=== PATIENT | female | born 1940 | race Hispanic/Latino ===

== ENCOUNTER 2022-06-24 17:00 | Inpatient (IN) | payer OTHER, MEDICARE ==
[~2022-06-24] VITALS: Ht 157.5 cm; Wt 58.6 kg
[~2022-06-24 17:00] MED LIST: ALEN70TA80 PO; ASPI-1197 PO; ATOR20TA65 PO; ISOS30TA92 PO; LEVO125T11 PO; LISINOPRIL PO; METO25TA6 PO; RIVA20TA PO
[2022-06-24] MEDS ORDERED: DILTIAZEM 25MG INJ IVP ONE (17:30)
[2022-06-24 17:39] LABS: BASOPHILS % (AUTO) 0.5 % (0.0-5.0); EOSINOPHILS % (AUTO) 1.7 % (0.0-8.0); HEMATOCRIT 33.9 % (36-48); LYMPHOCYTES % (AUTO) 34.1 % (21.0-51.0); MEAN CORPUSCULAR HEMOGLOBIN 26.9 pg (27.0-33.0); MEAN CORPUSCULAR HGB CONC 32.7 g/dL (32.0-36.0); MEAN CORPUSCULAR VOLUME 82.3 fL (79-99); NEUTROPHILS % (AUTO) 54.5 % (40.0-77.0); PLATELET COUNT (AUTO) 220 K/uL (130-400); RED BLOOD CELL COUNT(AUTO) 4.12 MIL/uL (4.00-5.50); RED CELL DISTRIBUTION WIDTH 12.8 % (11.0-15.5); WHITE BLOOD COUNT (AUTO) 8.7 K/uL (4.8-10.8)
[2022-06-24 17:49] LABS: CARBON DIOXIDE 29 mmol/L (21-32); CHLORIDE 99 mmol/L (101-111); CREATININE 1.2 mg/dL (0.5-1.5); GLOMERULAR FILTR. RATE CALC 46 mL/min (>60); GLUCOSE,RANDOM 125 mg/dL (70-105); POTASSIUM 3.6 mmol/L (3.5-5.1); SODIUM SERUM 137 mmol/L (136-145); UREA NITROGEN, BLOOD 12 mg/dL (7-18)
[2022-06-24] MEDS ORDERED: METO25TA6 PO (17:50)
[2022-06-24] MEDS ORDERED: FAMO40TA75 PO (17:50)
[2022-06-24] MEDS ORDERED: HYDR12.54 PO (17:50)
[2022-06-24] MEDS ORDERED: OMEP40CA21 PO (17:50)
[2022-06-24] MEDS ORDERED: LEVO100C4 PO (17:50)
[2022-06-24] MEDS ORDERED: LISI40TA9 PO (17:50)
[2022-06-24 18:02] LABS: ALANINE AMINOTRANSFERASE 18 U/L (12-78); ALBUMIN 3.6 g/dL (3.5-5.0); ASPARTATE AMINOTRANSFERASE 18 U/L (10-37); TOTAL PROTEIN, SERUM 7.4 g/dL (6.0-8.3)
[2022-06-24 18:03] LABS: B-TYPE NATRIURETIC PEPTIDE 454 pg/mL (0-100)
[2022-06-24 18:20] LABS: CRP QUANTITATIVE < 2.00 mg/L (0.00-9.0)
[2022-06-24 18:42] LABS: APPEARANCE,URINE CLEAR (CLEAR); BILIRUBIN,URINE NEGATIVE (NEGATIVE); COLOR,URINE YELLOW (YELLOW); GLUCOSE, URINE (UA) NEGATIVE (NEGATIVE); KETONES,URINE NEGATIVE (NEGATIVE); LEUKOCYTE ESTERASE ,URINE LARGE (NEGATIVE); NITRATE,URINE NEGATIVE (NEGATIVE); OCCULT BLOOD,URINE TRACE-INTACT (NEGATIVE); PROTEIN,URINE NEGATIVE (NEGATIVE); UROBILINOGEN,URINE 0.2 mg/dL (0.2-1.0)
[2022-06-24 18:50] LABS: BACTERIA,URINE Few /HPF (None Seen); SQUAMOUS EPITHELIAL CELL,UR Few /HPF (0-2)
[2022-06-24] MEDS ORDERED: DILTIAZEM 125 MG/25 ML INJ 125 MG in 0.9%NACL 100ML 100 ML IV PRN (19:00)
[2022-06-24] MEDS ORDERED: DILTIAZEM 25MG INJ IVP PRN (19:00)
[2022-06-24] MEDS ORDERED: CEFTRIAXONE 1G VIAL IVP ONE (19:00)
[2022-06-25 05:05] LABS: BASOPHILS % (AUTO) 0.6 % (0.0-5.0); EOSINOPHILS % (AUTO) 2.6 % (0.0-8.0); LYMPHOCYTES % (AUTO) 36.9 % (21.0-51.0); MEAN CORPUSCULAR HEMOGLOBIN 26.8 pg (27.0-33.0); MEAN CORPUSCULAR HGB CONC 32.3 g/dL (32.0-36.0); MEAN CORPUSCULAR VOLUME 82.9 fL (79-99); MONOCYTES % (AUTO) 7.8 % (3.0-13.0); PLATELET COUNT (AUTO) 220 K/uL (130-400); RED BLOOD CELL COUNT(AUTO) 4.22 MIL/uL (4.00-5.50); WHITE BLOOD COUNT (AUTO) 7.8 K/uL (4.8-10.8)
[2022-06-25 05:25] LABS: HEMOGLOBIN A1C 6.2 % (4.0-6.0)
[2022-06-25 05:50] LABS: ALBUMIN 3.1 g/dL (3.5-5.0); MAGNESIUM 1.9 mg/dL (1.80-2.40); PHOSPHORUS 4.3 mg/dL (2.5-4.9); POTASSIUM 4.2 mmol/L (3.5-5.1); TOTAL PROTEIN, SERUM 6.8 g/dL (6.0-8.3)
[2022-06-25 08:00] VITALS: BP 110/77
[2022-06-25] MEDS ORDERED: ASPIRIN 81 MG EC TAB PO SCH (09:00)
[2022-06-25] MEDS ORDERED: ENOXAPARIN SODIUM 40 MG/0.4 ML SYRINGE SQ SCH (09:00)
[2022-06-25 12:00] VITALS: BP 112/58
[2022-06-25 12:58] VITALS: BP 138/53
[2022-06-25 16:00] VITALS: BP 110/76
[2022-06-25] MEDS ORDERED: METOPROLOL TARTRATE 50 MG TAB PO ONE (18:30)
[2022-06-25 20:00] VITALS: BP 135/64
[2022-06-25] MEDS ORDERED: METOPROLOL TARTRATE 25 MG TAB PO SCH (21:00)
[2022-06-25] MEDS ORDERED: HYDROCHLOROTHIAZIDE 25 MG TABLET PO SCH (21:00)
[2022-06-25] MEDS: METOPROLOL TARTRATE 25 MG TAB PO SCH (21:08)
[2022-06-26 00:43] VITALS: BP 107/54
[2022-06-26 04:37] VITALS: BP 132/72
[2022-06-26] MEDS ORDERED: LEVOTHYROXINE 100 MCG TABLET PO SCH (06:30)
[2022-06-26 08:00] VITALS: BP 106/56
[2022-06-26] MEDS: METOPROLOL TARTRATE 25 MG TAB PO SCH (08:27)
[2022-06-26] MEDS ORDERED: HYDROCHLOROTHIAZIDE 25 MG TABLET PO SCH (08:30)
[2022-06-26] MEDS ORDERED: FAMOTIDINE 20MG TAB PO SCH (09:00)
[2022-06-26] MEDS ORDERED: ATORVASTATIN 20 MG TABLET PO SCH (09:00)
[2022-06-26] MEDS ORDERED: LISINOPRIL 40 MG TABLET PO SCH (09:00)
[2022-06-26] MEDS ORDERED: DRONEDARONE HYDROCHLORIDE 400 MG TABLET PO SCH (09:00)
[2022-06-26] MEDS ORDERED: PANTOPRAZOLE 40 MG TAB DR PO SCH (09:00)
[2022-06-26] MEDS ORDERED: FUROSEMIDE 20MG VIAL IV SCH (09:00)
[2022-06-26] MEDS ORDERED: RIVAROXABAN 20 MG TABLET PO SCH (09:00)
[2022-06-26 12:00] VITALS: BP 95/45
[2022-06-27] MEDS ORDERED: FUROSEMIDE 20 MG TABLET PO SCH (09:00)
== END 2022-06-26 14:33 | disposition home or self-care (01) | DRG 291 ==
LOC: EDH 17:00 → EDHIP 18:56 → 4CH 06-25 07:42
PROVIDERS: ADMIT Internal Medicine Infectious Disease; ATTEND Internal Medicine Infectious Disease
DX: I11.0 Hypertensive heart disease with heart failure (principal); I50.31 Acute diastolic (congestive) heart failure; D68.59 Other primary thrombophilia; Z20.822 Contact with and (suspected) exposure to COVID-19; I48.0 Paroxysmal atrial fibrillation; E03.9 Hypothyroidism, unspecified; D64.9 Anemia, unspecified; I25.10 Atherosclerotic heart disease of native coronary artery without angina pectoris; E78.00 Pure hypercholesterolemia, unspecified; E11.9 Type 2 diabetes mellitus without complications; Z79.01 Long term (current) use of anticoagulants
CPT/HCPCS: 36415; 71045; 80053; 81001; 82550; 83036; 83735; 83874; 83880; 84100; 84443; 84484; 85025; 86140; 87088; 87635; 93005; C9803; G0378; J0696; J1650; J3490

== ENCOUNTER → 2022-06-29 | Outpatient (CLI) | payer OTHER, MEDICARE ==
[~2022-06-29] MED LIST changes: -ALEN70TA80 PO; -ASPI-1197 PO; +FAMO40TA75 PO; +HYDR12.54 PO; -ISOS30TA92 PO; +LEVO100C4 PO; -LEVO125T11 PO; +LISI40TA9 PO; -LISINOPRIL PO; +OMEP40CA21 PO
== END | disposition home or self-care (01) ==
LOC: CANPRECLI → SHCH 08:59
PROVIDERS: ATTEND Internal Medicine Cardiovascular Disease
DX: I10 Essential (primary) hypertension (principal); R06.02 Shortness of breath; E78.5 Hyperlipidemia, unspecified
CPT/HCPCS: 93306

== ENCOUNTER → 2023-05-31 | Outpatient (CLI) | payer MEDICARE ==
[2023-05-31 12:09] LABS: BASOPHILS # (AUTO) 0.06 K/uL (0.00-0.20); BASOPHILS % (AUTO) 0.6 % (0.0-5.0); EOSINOPHILS % (AUTO) 2.1 % (0.0-8.0); HEMATOCRIT 33.9 % (36-48); IMMATURE GRANULOCYTE ABSOLUTE 0.05 K/uL (0-1); LYMPHOCYTES # (AUTO) 2.2 K/uL (1.0-4.8); MEAN CORPUSCULAR HEMOGLOBIN 27.1 pg (27.0-33.0); MEAN CORPUSCULAR HGB CONC 31.6 g/dL (32.0-36.0); MEAN CORPUSCULAR VOLUME 85.8 fL (79-99); MONOCYTES # (AUTO) 0.8 K/uL (0.1-1.0); MONOCYTES % (AUTO) 8.6 % (3.0-13.0); NEUTROPHILS # (AUTO) 6.1 K/uL (1.8-7.7); NEUTROPHILS % (AUTO) 65.2 % (40.0-77.0); PLATELET COUNT (AUTO) 195 K/uL (130-400); RED BLOOD CELL COUNT(AUTO) 3.95 MIL/uL (4.00-5.50); RED CELL DISTRIBUTION WIDTH 13.7 % (11.0-15.5); WHITE BLOOD COUNT (AUTO) 9.4 K/uL (4.8-10.8)
[2023-05-31 12:32] LABS: ALBUMIN 3.4 g/dL (3.5-5.0); BILIRUBIN,TOTAL 0.5 mg/dL (0.2-1.0); CREATININE 1.2 mg/dL (0.5-1.5); POTASSIUM 4.6 mmol/L (3.5-5.1); TOTAL PROTEIN, SERUM 7.4 g/dL (6.0-8.3)
== END | disposition home or self-care (01) ==
LOC: LAB 10:38
PROVIDERS: ATTEND Internal Medicine Cardiovascular Disease
DX: I20.0 Unstable angina (principal)
CPT/HCPCS: 36415; 80053; 85025

== ENCOUNTER → 2023-07-02 | Outpatient (CLI) | payer MEDICARE ==
[~2023-07-02] MED LIST changes: +REGADENOSON 0.4 MG/5 ML PF SYG IVP ONE
== END | disposition home or self-care (01) ==
LOC: SHCH 07:37
PROVIDERS: ATTEND Internal Medicine Cardiovascular Disease
DX: I20.0 Unstable angina (principal)
CPT/HCPCS: 78452; 93017; J2785; A9500 ×2; 96374

== ENCOUNTER → 2023-09-23 | Outpatient (CLI) | payer MEDICARE ==
[~2023-09-23] MED LIST changes: -REGADENOSON 0.4 MG/5 ML PF SYG IVP ONE
== END | disposition home or self-care (01) ==
LOC: RAH 08:45
PROVIDERS: ATTEND Internal Medicine Gastroenterology
DX: K44.9 Diaphragmatic hernia without obstruction or gangrene (principal); K31.A11 Gastric intestinal metaplasia without dysplasia, involving the antrum; R10.13 Epigastric pain; K21.00 Gastro-esophageal reflux disease with esophagitis, without bleeding
CPT/HCPCS: 74240

== ENCOUNTER 2024-12-04 20:34 | Emergency (ER) | payer MEDICARE ==
[~2024-12-04] VITALS: Ht 149.9 cm; Wt 61.2 kg
--- NOTE | 2024-12-04 20:51 | EKG ---
[facility] Test Date: 2024-12-04 Test Time: 20:47:01 Pat Name: EMILIANO NELSON Department: ED Room: Gender: F Audio Visual Project Manager: [id number] : 1940 Requested By: LUDWIN TATE Order Number: [id number] Reading MD: Ty Velasquez Measurements Intervals [place] Rate: 59 P: 1 AR: 183 QRS: 30 QRSD: 64 T: 47 QT: 442 QTc: 437 Interpretive Statements Sinus rhythm Compared to ECG 06/24/2022 17:14:13 Atrial fibrillation no longer present Electronically Signed On 12-05-2024 06:58:31 UPPER CUTTER by Ty Velasquez Please click the below link to view image of tracing.
--- NOTE | 2024-12-04 20:56 | ERN ---
ED Note History of Present Illness Stated Complaint: C/O CP WITH SOB Chief Complaint: Chest Pain Time Seen by MD: 20:44 Dictation: PATIENT IS AN 84-YEAR-OLD FEMALE HERE WITH HER DAUGHTER WITH COMPLAINTS OF ANTERIOR CHEST PRESSURE ONSET 3-4 DAYS PRIOR TO ARRIVAL. NO SHORTNESS A BREATH NO BACK PAIN NO JAW PAIN NO ARM PAIN. SHE DOES HAVE A HISTORY OF HYPERTENSION AND IS COMPLIANT WITH HER MEDICATIONS. SHE STATES SHE SAW DR. ALVAREZ, IN HOME [employer] LAST WEEK WHO GAVE HER NITROGLYCERIN TO TAKE SUBLINGUALLY FOR ANGINA, SHE SAID SHE DID NOT USE IT. Allergies: Coded Allergies: Sulfa (Sulfonamide Antibiotics) (Unverified Allergy, Unknown, RASH, 03/09/16) Home Meds Active Scripts Rivaroxaban (Xarelto) 20 Mg Tablet, 20 MG PO DAILY, #30 TAB 3 Refills Prov:ALECIA SHAH MD 03/12/16 Reported Medications Omeprazole (Omeprazole) 40 Mg Capsule.dr, 40 MG PO DAILY, CAP 06/24/22 Levothyroxine Sodium (Levothyroxine) 100 Mcg Capsule, 100 MCG PO DAILY, CAP 06/24/22 Metoprolol Tartrate (Metoprolol Tartrate) 25 Mg Tablet, 25 MG PO BID, TAB 06/24/22 Hydrochlorothiazide (Hydrochlorothiazide) 12.5 Mg Tablet, 12.5 MG PO BID, TAB 06/24/22 Famotidine (Pepcid) 40 Mg Tablet, 40 MG PO DAILY, TAB 06/24/22 Lisinopril (Lisinopril) 40 Mg Tablet, 40 MG PO DAILY, TAB 06/24/22 Atorvastatin Calcium (Atorvastatin Calcium) 20 Mg Tablet, 2 TAB PO DAILY, TAB 03/09/16 Past Medical History Past Medical History: High Cholesterol, Hypertension, Hypothyroid Additional Past Medical Hx: THYROID Surgical History: Appendectomy Family History: Negative Social History: Negative History: Not Applicable RN Note Reviewed/Agreed w/PFSH: Yes Review of System Dictation CONSTITUTIONAL: NEGATIVE EXCEPT FOR HPI HEAD/FACE: NEGATIVE EXCEPT FOR HPI EENT: NEGATIVE EXCEPT FOR HPI RESPIRATORY: NEGATIVE EXCEPT FOR HPI CHEST PRESSURE GASTROINTESTINAL/ABDOMINAL: NEGATIVE EXCEPT FOR HPI GENITOURINARY: NEGATIVE EXCEPT FOR HPI MUSCULOSKELETAL: NEGATIVE EXCEPT FOR HPI INTEGUMENTARY: NEGATIVE EXCEPT FOR HPI NEUROLOGICAL/PSYCH: NEGATIVE EXCEPT FOR HPI HEMATOLOGIC/LYMPHATIC: NEGATIVE EXCEPT FOR HPI ALL SYSTEMS NEGATIVE, EXCEPT NOTED ABOVE. 13 POINT REVIEW OF SYSTEMS ASSESSED AND ALL NEGATIVE EXCEPT FOR ABOVE. Initial Vital Sign VS Vital Signs Date Time Temp Pulse Resp B/P (MAP) Pulse Ox O2 Delivery O2 Flow Rate FiO2 12/04/24 20:42 98.1 55 20 193/68 98 Room Air 12/04/24 21:45 0 21 Physical Exam Dictation VITAL SIGNS REVIEWED GENERAL APPEARANCE: ALERT, ORIENTED X 3, NO ACUTE DISTRESS, WELL DEVELOPED, NOURISHED. HEAD AND FACE: NON-TRAUMATIC. EYES: PERRL, PINK CONJUNCTIVAS, EYELID NO TRAUMA, ANTERIOR CHAMBER WITH ARCUS SE NILIS. EARS: PINNAS INTACT AND NO SIGNS OF TRAUMA OR ERYTHEMA EAR CANALS CLEAR AND NO DISCHARGE TM NO ERYTHEMA NOSE: NO DISCHARGE, NO BLEEDING. OROPHARYNX: MOUTH NORMAL, TONGUE PINK, PHARYNX CLEAR,NO ERYTHEMA, TONSILS NO EXUDATES, NO ABSCESSES NOTED, MUCOUS MEMBRANE MOIST NECK: SUPPLE, NON-TENDER, NO THYROMEGALY, NO MASSES, NO JVD, NO BRUITS BREAST:DEFERRED CHEST:NO TENDERNESS, NO CREPITUS, NO PARADOXICAL MOVEMENT, NO RETRACTIONS LUNGS:CLEAR, WELL-VENTILATED, SYMMETRIC, NO RALES, NO WHEEZING, NO RHONCHI, NO STRIDOR, GOOD BREATH SOUNDS BILATERALLY HEART: REGULAR RATE, REGULAR RHYTHM, NO MURMUR, NO GALLOPS VASCULAR: NO PERIPHERAL EDEMA, ABDOMEN: SOFT, POSITIVE BOWEL SOUNDS, NONDISTENDED, NO GUARDING, NONTENDER, NO REBOUND, NO MASSES NO HEPATOMEGALY, NO SPLENOMEGALY, NO MONTGOMERY'S SIGN, NO HERNIAS. RECTAL: DEFERRED GENITAL: DEFERRED NEUROLOGICAL: NORMAL SPEECH, MOTOR FUNCTION INTACT, SENSORY FUNCTION INTACT MUSCULOSKELETAL: NECK NONTENDER, FULL RANGE OF MOTION, BACK NONTENDER, FULL RANGE OF MOTION, EXTREMITIES: NONTENDER, FULL RANGE OF MOTION SKIN: COLOR PINK, DRY, NO TURGOR, NO RASH, NO LACERATIONS, NO ABRASIONS, NO CONTUSIONS. LYMPHATIC: DEFERRED Results (Laboratory/Radiology) Laboratory/Radiology Laboratory Tests Test 12/04/24 20:55 12/04/24 21:17 12/04/24 21:22 12/04/24 22:27 White Blood Count 8.2 K/uL (4.8-10.8) Red Blood Count 3.74 MIL/uL (4.00-5.50) L Hemoglobin 10.1 g/dL (12.0-16.0) L Hematocrit 31.6 % (36-48) L Mean Corpuscular Volume 84.5 fL (79-99) Mean Corpuscular Hemoglobin 27.0 pg (27.0-33.0) Mean Corpuscular Hemoglobin Concent 32.0 g/dL (32.0-36.0) Red Cell Distribution Width 13.5 % (11.0-15.5) Platelet Count 183 K/uL (130-400) Mean Platelet Volume 11.7 fL (7.5-10.5) H Immature Granulocyte % (Auto) 0.2 % (0-1) Neutrophils (%) (Auto) 48.4 % (40.0-77.0) Lymphocytes (%) (Auto) 40.0 % (21.0-51.0) Monocytes (%) (Auto) 8.0 % (3.0-13.0) Eosinophils (%) (Auto) 2.8 % (0.0-8.0) Basophils (%) (Auto) 0.6 % (0.0-5.0) Neutrophils # (Auto) 4.0 K/uL (1.8-7.7) Lymphocytes # (Auto) 3.3 K/uL (1.0-4.8) Monocytes # (Auto) 0.7 K/uL (0.1-1.0) Eosinophils # (Auto) 0.23 K/uL (0.00-0.70) Basophils # (Auto) 0.05 K/uL (0.00-0.20) Absolute Immature Granulocyte (auto 0.02 K/uL (0-1) Nucleated Red Blood Cells 0.0 % (0.0-0.19) Sodium Level 142 mmol/L (136-145) Potassium Level 4.2 mmol/L (3.5-5.1) Chloride Level 106 mmol/L (101-111) Carbon Dioxide Level 31 mmol/L (21-32) Blood Urea Nitrogen 22 mg/dL (7-18) H Creatinine 1.1 mg/dL (0.5-1.0) H Glomerular Filtration Rate Calc 50 mL/min (>90) Random Glucose 104 mg/dL (70-105) Total Calcium 8.8 mg/dL (8.5-10.1) Total Creatine Kinase 75 U/L (21-232) # B-Type Natriuretic Peptide 319 pg/mL (0-100) H Troponin I < 0.05 ng/mL (0.00-0.05) < 0.05 ng/mL (0.00-0.05) Troponin I High Sensitivity 14 ng/L (4-50) CHEST 1VW REASON: CHEST PAIN COMPARISON: 06/24/2022 FINDINGS: Single view of the chest was obtained. Lungs are clear. Heart size is borderline. There is no pulmonary vascular congestion. Mediastinum and bony thorax appear unremarkable. IMPRESSION: 1. Borderline heart size, no acute finding. Labs Reviewed?: Yes EKG Comment: EKG SINUS BRADYCARDIA/HEART RATE 59/AXIS NORMAL/NO ECTOPY 2340/2ND EKG SINUS BRADYCARDIA/HEART RATE 48/AXIS NORMAL/NO ECTOPY SECOND HEART SCORE IS THREE ED Course ED Course Orders Procedure Category Date Status Time Vital Signs Per CPOE 12/04/24 Transmitted Routine 20:37 B-Type Natriuretic LAB 12/04/24 Complete Peptide 20:37 Chest 1vw RAD 12/04/24 Resulted 20:37 12 Lead Ekg Tracing- EKG 12/04/24 Complete Technical 20:37 Oxygen By Nc/Pulse Ox CPOE 12/04/24 Transmitted 20:37 Maintain Iv CPOE 12/04/24 Transmitted 20:37 Iv Insertion CPOE 12/04/24 Transmitted 20:37 Cardiac Monitoring CPOE 12/04/24 Transmitted 20:37 Pulse Oximetry With CPOE 12/04/24 Transmitted Vs And Prn 20:37 Cbc With Differential LAB 12/04/24 Complete 20:37 Activity: Br W/Brp CPOE 12/04/24 Transmitted With Assist 20:37 Creatine Kinase, Total LAB 12/04/24 Complete 20:37 Urinalysis Profile LAB 12/04/24 Logged 20:37 Troponin Poc Order LAB 12/04/24 Complete Only 20:37 Bedside Troponin-I LAB.ER 12/04/24 In Process (Poc) 20:37 Basic Metabolic Panel LAB 12/04/24 Complete 20:37 Troponin I High LAB 12/04/24 Complete Sensitivity 22:13 12 Lead Ekg Tracing- EKG 12/04/24 Logged Technical 22:13 Vital Signs Date Time Temp Pulse Resp B/P (MAP) Pulse Ox O2 Delivery O2 Flow Rate FiO2 12/04/24 23:38 98.1 50 16 132/72 97 Room Air* 0 21 12/04/24 21:45 98.1 55 16 185/77 99 Room Air* 0 21 12/04/24 20:42 98.1 55 20 193/68 98 Room Air 2340/CARDIAC WORKUP WITH A EKGS AND TROPONINS NEGATIVE X2. PATIENT HAS A CHRONIC ANEMIA HOWEVER NO OTHER ELECTROLYTE IMBALANCES DEHYDRATION OR FINDINGS ON HER LABS. NO CHEST PRESSURE AT THIS TIME PATIENT AND DAUGHTER INSTRUCTED TO FOLLOW UP WITH HER PRIMARY CARE DOCTOR HEART Score Response (Comments) Value History: Low suspicion (0) 0 Age: > 65yrs (+2) 2 Risk Factors: 1-2 risk factors (+1) 1 Initial Troponin: Normal limit (0) 0 Total 3 Medical Decision Making MDM MDM: DIFFERENTIAL DIAGNOSIS: ACS/AMI/ANGINA/ELECTROLYTE IMBALANCE/DEHYDRATION/ PNEUMONIA/BRONCHITIS RATIONALE: TESTS CONSIDERED AND ORDERED SECONDARY TO SHARED DECISION MAKING INCLUDE: EKG/LABS/RADIOLOGY PREVIOUS OUTSIDE RECORDS REVIEWED: OLD ER VISITS. RISK OF COMPLICATION AND/OR MORBIDITY OR MORTALITY OF PATIENT MANAGEMENT: NONE MEDICATIONS-PER MEDICATION RECONCILIATION NEED FOR HOSPITALIZATION: PATIENT DOES NOT MEET CRITERIA FOR HOSPITALIZATION. NO NEED FOR EMERGENCY MAJOR/MINOR SURGERY: NO THERE ARE NO SOCIAL CONCERNS WITH THIS PATIENT. PRESCRIPTION DRUG MANAGEMENT NONE PRESCRIPTIONS WILL INCLUDE SYMPTOMATIC CARE PATIENT'S PRIOR EXTERNAL MEDICAL RECORDS FROM OTHER ER VISITS WERE REVIEWED BY ME INDICATED. PRIOR TESTING AND RESULTS FROM PREVIOUS VISITS WERE REVIEWED. PRIOR TESTS WERE TAKEN INTO ACCOUNT WITH MEDICAL DECISION MAKING AND RESOURCE UTILIZATION, INDEPENDENT HISTORIAN/HISTORIANS WERE USED TO OBTAIN COMPLETE MEDICAL HISTORY. I INDEPENDENTLY INTERPRETED THE TEST THAT WERE PERFORMED, RESULTS WERE REVIEWED BY ME AND CONSIDERED FINDINGS ON RADIOLOGY IF ORDERED. MEDICAL MANAGEMENT AND EXAMINATION INTERPRETATION DISCUSSIONS WERE HAD BY ME WITH OTHER QUALIFIED HEALTHCARE PROFESSIONALS INDICATED FOR THE PATIENT'S CARE. DX & DISP Disposition: Discharge Departure Impression: Primary Impression: Atypical chest pain Additional Impressions: Chronic anemia, Hypertension Condition: Stable Additional Instructions: FOLLOW-UP WITH PRIMARY CARE PROVIDER IN 1 TO 2 DAYS. TAKE MEDICATIONS DIRECTED HERE IN THE EMERGENCY ROOM. OKAY TO CONTINUE HOME MEDICATIONS UNLESS OTHERWISE DISCUSSED DURING YOUR VISIT IN THE EMERGENCY ROOM TODAY. RETURN TO YOUR NEAREST EMERGENCY ROOM IF SYMPTOMS WORSEN OR IF THERE IS NO IMPROVEMENT. CALL 911 IF YOU NEED IMMEDIATE ASSISTANCE. TAKE TYLENOL OR MOTRIN [id number] NEEDED AND IF NO CONTRAINDICATIONS ARE PRESENT. INCREASE ORAL HYDRATION. A WOUND CULTURE OR URINE CULTURE WAS ORDERED HERE IN THE EMERGENCY ROOM DEPARTMENT PLEASE FOLLOW-UP WITH PRIMARY CARE PROVIDER AND ADVISE THEM TO GET REPEAT PORTS FROM OUR FACILITY. IF YOU HAD ANY AUGUSTINE WRAP/SPLINTS THAT WERE APPLIED HERE, PLEASE DO NOT REMOVE THEM UNTIL YOU SEE YOUR PRIMARY CARE OR SPECIALTY. CONTINUE ALL MEDICATIONS AND TREATMENTS AT HOME FROM YOUR DOCTOR. FOLLOW UP WITH YOUR PRIMARY CARE DOCTOR IN THE NEXT 1-2 DAYS. Referrals: JOANNA GARZA DO (PCP) Time of Disposition: 23:42 I have reviewed the case, and I agree with, Diagnosis and Plan ZAID NAVA NP Dec 04, 2024 20:56
[2024-12-04 21:11] LABS: CREATININE 1.1 mg/dL (0.5-1.0); POTASSIUM 4.2 mmol/L (3.5-5.1)
--- NOTE | 2024-12-04 21:25 | HMCIMG ---
CHEST 1VW REASON: CHEST PAIN COMPARISON: 06/24/2022 FINDINGS: Single view of the chest was obtained. Lungs are clear. Heart size is borderline. There is no pulmonary vascular congestion. Mediastinum and bony thorax appear unremarkable. IMPRESSION: 1. Borderline heart size, no acute finding.
[2024-12-04 21:26] LABS: B-TYPE NATRIURETIC PEPTIDE 319 pg/mL (0-100)
[2024-12-04 21:29] LABS: BASOPHILS # (AUTO) 0.05 K/uL (0.00-0.20); BASOPHILS % (AUTO) 0.6 % (0.0-5.0); EOSINOPHILS # (AUTO) 0.23 K/uL (0.00-0.70); EOSINOPHILS % (AUTO) 2.8 % (0.0-8.0); HEMATOCRIT 31.6 % (36-48); IMMATURE GRANULOCYTE ABSOLUTE 0.02 K/uL (0-1); LYMPHOCYTES # (AUTO) 3.3 K/uL (1.0-4.8); MEAN CORPUSCULAR VOLUME 84.5 fL (79-99); MONOCYTES # (AUTO) 0.7 K/uL (0.1-1.0); NEUTROPHILS % (AUTO) 48.4 % (40.0-77.0); PLATELET COUNT (AUTO) 183 K/uL (130-400); RED BLOOD CELL COUNT(AUTO) 3.74 MIL/uL (4.00-5.50); RED CELL DISTRIBUTION WIDTH 13.5 % (11.0-15.5); WHITE BLOOD COUNT (AUTO) 8.2 K/uL (4.8-10.8)
[2024-12-04 23:38] VITALS: BP 132/72; PULSE 50; RESP 16; TEMP 98; O2SAT 97
--- NOTE | 2024-12-05 04:46 | EKG ---
[facility] Test Date: 2024-12-04 Test Time: 23:32:20 Pat Name: EMILIANO NELSON Department: ED Room: Gender: F Inside Steward/Stewardess: 0 : 1940 Requested By: ZAID NAVA Order Number: [id number] Reading MD: Ty Velasquez Measurements Intervals [place] Rate: 48 P: -11 MT: 190 QRS: 23 QRSD: 66 T: 47 QT: 475 QTc: 426 Interpretive Statements Sinus bradycardia Compared to ECG 12/04/2024 20:47:01 Sinus rhythm no longer present Electronically Signed On 12-05-2024 06:58:35 OIL BURNER by Ty Velasquez Please click the below link to view image of tracing.
== END 2024-12-05 00:04 | disposition home or self-care (01) ==
LOC: EDH 20:34
DX: R07.89 Other chest pain (principal); D64.9 Anemia, unspecified; I10 Essential (primary) hypertension; E03.9 Hypothyroidism, unspecified; E78.00 Pure hypercholesterolemia, unspecified; Z79.01 Long term (current) use of anticoagulants; Z79.890 Hormone replacement therapy; Z79.899 Other long term (current) drug therapy; Z88.2 Allergy status to sulfonamides; Z90.49 Acquired absence of other specified parts of digestive tract
CPT/HCPCS: 36415; 71045; 80048; 82550; 83880; 84484; 85025; 93005; 99285

== ENCOUNTER → 2024-12-11 | Outpatient (CLI) | payer MEDICARE ==
[~2024-12-11] MED LIST changes: +IOHEXOL 350 MG/ML 100ML INFUS..BTL IV ONE; +NITROGLYCERIN 4.9GM SPRAY 60 SPRAY/BOT SPRY TL ONE
--- NOTE | 2024-12-11 14:34 | HMCIMG ---
CT CARDIAC ANGIO W/CONT. CCTA HISTORY: Chest pain COMPARISON: None TECHNIQUE: Multiple sequential axial images of the chest were obtained along with the CT angiogram of the chest study. Patient was given 100 cc of Omnipaque through intravenous route. FINDINGS: There is no evidence of pulmonary nodule or parenchymal disease. No pleural effusion or pericardial effusion is seen. There is no evidence of pneumothorax. There are normal size mediastinal and hilar lymph nodes. The heart is not enlarged. Degenerative changes of the thoracolumbar spine are present. A small hiatal hernia is seen. IMPRESSION: 1. No evidence of pulmonary nodule or effusion is seen. Please see CT angiogram report of coronary arteries.
== END | disposition home or self-care (01) ==
LOC: RAH 09:02
PROVIDERS: ATTEND Internal Medicine Cardiovascular Disease
DX: I20.9 Angina pectoris, unspecified (principal); R07.9 Chest pain, unspecified; K44.9 Diaphragmatic hernia without obstruction or gangrene; M47.815 Spondylosis without myelopathy or radiculopathy, thoracolumbar region
CPT/HCPCS: 75574; Q9967